=== PATIENT | female | born 1990 | race African-American/Black ===

== ENCOUNTER 2018-06-21 03:20 | Emergency (ER) | payer MEDICAID ==
[~2018-06-21] VITALS: Ht 172.7 cm; Wt 70.0 kg
[2018-06-21 03:29] VITALS: BP 126/80
== END 2018-06-21 05:42 | disposition left against medical advice (07) ==
LOC: ER 03:20
DX: R51 Headache (principal); Z53.21 Procedure and treatment not carried out due to patient leaving prior to being seen by health care provider